=== PATIENT | female | born 1975 | race Caucasian/White ===

== ENCOUNTER 2023-01-01 10:29 | Emergency (ER) | payer SELFPAY ==
[~2023-01-01] VITALS: Ht 164 cm; Wt 55.0 kg
[2023-01-01] MEDS ORDERED: KETOROLAC INJ 30 MG/ML VIAL IVP ONE (11:30)
[2023-01-01] MEDS ORDERED: ONDANSETRON INJECTION 4 MG/2 ML (SDV) IVP ONE (11:30)
[2023-01-01] MEDS ORDERED: NS IV 1000 ML 1,000 ML IV STA (11:30)
--- NOTE | 2023-01-01 11:36 | ED Abdominal Pain ---
General Chief Complaint: Abdominal/GI Problems Stated Complaint: VOMITING | ABD PAIN Nursing Triage Note: PT STATES VOMITING THAT STARTED ABOUT 11 DAYS AGO, IT STOPPED FOR SEVERAL DAYS, PT STARTED FEELING NAUSEA AND VOMITING 3 DAYS AGO, TOOK ZOFRAN AND FELT BETTER FOR A BIT THEN STARTED VOMITING AGAIN, STILL NOT FEELING WELL, DIARRHEA AND CONSTIPATION OFF AND ON, NO OTHER MEDS TAKEN BESIDES ZOFRAN, LOW ABD PAIN Source of Information: Patient Exam Limitations: No Limitations (PAIGE CARRINGTON) History of Present Illness Date Seen by Provider: Jan 01, 2023 Time Seen by Provider: 11:32 Initial Comments Patient is a 47-year-old female with a history of endometriosis who presents to the ED for vomiting, nausea, bloating, diarrhea, abdominal cramping. She states about 11 days ago she had a day of where she had vomiting and diarrhea. She chalked this off to a 24-hour GI bug. She states her son had similar symptoms. She did get better but about a week later started having lower abdominal cramping with nausea. She described as morning sickness. She did experience some vomiting Saturday and Saturday. She did take Zofran. Lower abdominal cramping is located in her left right lower quadrant. Seems to be intermittent but radiating to the back. She has a history of endometriosis requiring 4 different surgeries[address] followed Dr[address] Lazaro gynecology over at [facility]. He is currently not seeing patients. She has continued feeling nauseous. She does report some intermittent diarrhea without any blood or mucousy stools. Cramping seems to be worse with the diarrhea. She has had a colonoscopy in the past. She also reports a 20 pound weight loss over the past month. She denies chest pain, shortness of breath, cough, sore throat, headache, dizziness, dysuria, hematuria, increased urine frequency, vaginal bleeding. (PAIGE CARRINGTON) Allergies and Home Medications Allergies Coded Allergies: Penicillins (Verified Allergy, Severe, 01/01/23) Patient Home Medication List Home Medication List Reviewed: Yes (PAIGE CARRINGTON) Review of Systems Review of Systems Constitutional: No chills, No diaphoresis, No fever; malaise, weakness EENTM: No Blurred Vision, No Double Vision, No Eye Pain Respiratory: Denies Cough, Denies Orthopnea Cardiovascular: Denies Chest Pain Gastrointestinal: Abdominal Pain, Diarrhea, Nausea, Vomiting Genitourinary: Denies Burning, Denies Discharge, Denies Drainage, Denies Frequency Musculoskeletal: No back pain, No joint pain, No joint swelling, No muscle pain Skin: No change in color, No change in hair/nails (PAIGE CARRINGTON) All Other Systems Reviewed Negative Unless Noted: Yes (PAIGE CARRINGTON) Past Bmhcrhq-[id number]-Sxceqc Hx Patient Social History Tobacco Use?: No Substance use?: No Alcohol Use?: No (PAIGE CARRINGTON) Immunizations Up To Date First/Initial COVID19 Vaccinat: YES (PAIGE CARRINGTON) Past Medical History Surgery/Hospitalization HX: ENDOMETROSIS WITH 4 SURGERIES (PAIGE CARRINGTON) Physical Exam Vital Signs Vital Signs - First Documented 01/01/23 10:42 Temp 36.7 Pulse 79 Resp 18 B/P (MAP) 115/79 (91) O2 Delivery Room Air (CHARLES MAXWELL MD) Vital Signs Capillary Refill : Less Than 3 Seconds (PAIGE CARRINGTON) Height/Weight/BMI Height: '" Weight: lbs. oz. kg; 20.00 BMI Method: General Appearance: WD/WN, no apparent distress HEENT: PERRL/EOMI, normal ENT inspection, TMs normal, pharynx normal Neck: non-tender, full range of motion, supple Respiratory: chest non-tender, lungs clear, normal breath sounds, no respiratory distress, no accessory muscle use Cardiovascular: regular rate, rhythm, no edema, no gallop, no JVD Gastrointestinal: normal bowel sounds, soft, no organomegaly, other (Right lower quadrant tenderness. Normal bowel sounds throughout. No rebound or gu arding.) Extremities: normal range of motion, non-tender, normal inspection, no pedal edema Back: normal inspection, no CVA tenderness Neurologic/Psychiatric: gold buyer II-XII nml as tested, no motor/sensory deficits, alert, normal mood/affect, oriented x 3 Skin: normal color, warm/dry (PAIGE CARRINGTON) Progress/Results/Core Measures Results/Orders Lab Results Laboratory Tests Test 01/01/23 11:31 01/01/23 11:45 Range/Units Urine Color YELLOW Urine Clarity CLEAR Urine pH 6.5 5-9 Urine Specific [place] <=1.005 1.016-1.022 Urine Protein NEGATIVE NEGATIVE Urine Glucose (UA) NEGATIVE NEGATIVE Urine Ketones NEGATIVE NEGATIVE Urine Nitrite NEGATIVE NEGATIVE Urine Bilirubin NEGATIVE NEGATIVE Urine Urobilinogen 0.2 < = 1.0 MG/DL Urine Leukocyte Esterase NEGATIVE NEGATIVE Urine RBC (Auto) NEGATIVE NEGATIVE Urine RBC NONE /HPF Urine WBC NONE /HPF Urine Squamous Epithelial Cells 10-25 H /HPF Urine Crystals NONE /LPF Urine Bacteria NEGATIVE /HPF Urine Casts NONE /LPF Urine Mucus NEGATIVE /LPF Urine Culture Indicated NO Urine Chlamydia trachomatis RNA Not Detected Not Detected Urine Neisseria gonorrhoeae RNA Not Detected Not Detected White Blood Count 5.3 4.3-11.0 10^3/uL Red Blood Count 4.46 3.80-5.11 10^6/uL Hemoglobin 13.0 11.5-16.0 g/dL Hematocrit 39 35-52 % Mean Corpuscular Volume 87 80-99 fL Mean Corpuscular Hemoglobin 29 25-34 pg Mean Corpuscular Hemoglobin Concent 33 32-36 g/dL Red Cell Distribution Width 12.5 10.0-14.5 % Platelet Count 191 130-400 10^3/uL Mean Platelet Volume 10.8 9.0-12.2 fL Immature Granulocyte % (Auto) 0 % Neutrophils (%) (Auto) 64 42-75 % Lymphocytes (%) (Auto) 29 12-44 % Monocytes (%) (Auto) 6 0-12 % Eosinophils (%) (Auto) 1 0-10 % Basophils (%) (Auto) 0 0-10 % Neutrophils # (Auto) 3.4 1.8-7.8 10^3/uL Lymphocytes # (Auto) 1.5 1.0-4.0 10^3/uL Monocytes # (Auto) 0.3 0.0-1.0 10^3/uL Eosinophils # (Auto) 0.1 0.0-0.3 10^3/uL Basophils # (Auto) 0.0 0.0-0.1 10^3/uL Immature Granulocyte # (Auto) 0.0 0.0-0.1 10^3/uL Sodium Level 138 135-145 MMOL/L Potassium Level 3.6 3.6-5.0 MMOL/L Chloride Level 105 98-107 MMOL/L Carbon Dioxide Level 25 21-32 MMOL/L Anion Gap 8 5-14 MMOL/L Blood Urea Nitrogen 6 L 7-18 MG/DL Creatinine 0.79 0.60-1.30 MG/DL Estimat Glomerular Filtration Rate 94 BUN/Creatinine Ratio 8 Glucose Level 99 70-105 MG/DL Calcium Level 9.2 8.5-10.1 MG/DL Corrected Calcium 9.0 8.5-10.1 MG/DL Magnesium Level 2.1 1.6-2.4 MG/DL Total Bilirubin 0.6 0.1-1.0 MG/DL Aspartate Amino Transf (AST/SGOT) 11 5-34 U/L Alanine Aminotransferase (ALT/SGPT) 15 0-55 U/L Alkaline Phosphatase 69 40-136 U/L C-Reactive Protein High Sensitivity 0.01 0.00-0.50 MG/DL Total Protein 7.0 6.4-8.2 GM/DL Albumin 4.2 3.2-4.5 GM/DL Lipase 40 8-78 U/L (CHARLES MAXWELL MD) My Orders Orders - CHARLES MAXWELL MD Iohexol Injection (Omnipaque 350 Mg/Ml 1 (01/01/23 12:15) Received Contrast (Hold Metformin- Contr (01/01/23 12:15) Ns (Ivpb) 100 Ml (Sodium Chloride 0.9% 1 (01/01/23 12:15) (CHARLES MAXWELL MD) Vital Signs/I&O 01/01/23 01/01/23 01/01/23 10:42 11:52 17:02 Temp 36.7 36.7 36.7 Pulse 79 79 Resp 18 18 B/P (MAP) 115/79 (91) 115/79 O2 Delivery Room Air Room Air (CHARLES MAXWELL MD) Blood Pressure Mean: 91 Departure Communication (PCP) Patient is a 47-year-old female presents ED with lower abdominal pain nausea vomiting diarrhea. History of endometriosis. She reports four surgeries requiring removal of the endometriosis. Last surgery 3 years ago at [facility]. 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 Is not able to get a follow-up until March. Differential diagnosis, gastroenteritis, colitis, diverticulitis, endometriosis, cystitis, PID. She is not concern for sexual transmitted infections. No vaginal discharge, vaginal bleeding or urinary symptoms. She states last Pap smear was 3 years ago and states everything looked okay. CBC, CMP, urinalysis was ordered. CBC, CMP grossly unremarkable. Urinalysis negative for infection. CT abdomen pelvis noted some stranding and free fluid surrounding the cervix. Indeterminate liver lesions favored to represent hemangioma. Outpatient follow-up of liver MRI. Pelvic ultrasound shows a 2.1 cm left ovarian cyst. study otherwise unremarkable. Patient was discussed with Dr. Berumen VOIP TECHNICIAN on-call. She suggest adding a chlamydia and gonorrhea to her urine. Suggest getting a pelvic exam but patient was not adamant of doing this at this time. Suggest treating her with Rocephin and azithromycin and to follow-up with her her in the clinic within the next week. She has Zofran at home. Patient will need further evaluation. Continue with anti-inflammatories at home. She does have Zofran. Pain could be related to her endometriosis versus PID versus GI. Suggest further evaluation with gynecology. Patient agrees with plan of action. (PAIGE CARRINGTON) Impression Primary Impression: Abdominal pain Disposition: HOME, SELF-CARE Condition: Stable Departure-Patient Inst. Decision time for Depature: 16:18 (PAIGE CARRINGTON) Referrals: NO,LOCAL PHYSICIAN (PCP) Primary Care Physician TOMAS BERUMEN DO Patient Instructions: Abdominal Pain, Adult ED Add. Discharge Instructions: Recommend taking anti-inflammatories. Recommend contacting Dr. Berumen's office for a follow-up in the next week. All discharge instructions reviewed with patient and/or family. Voiced understanding. ATTENDING PHYSICIAN NOTE: I was physically present as attending physician in the emergency department during the care of this patient. I reviewed the case with SHANIA Hidalgo. Labs and imaging results were reviewed. I discussed these findings and the clinical history with Bryanna. It is possible some of the symptoms are due to recurrence of endometriosis. Inflammation was noted about the cervix on CT imaging. Shop Assistant consult and pelvic exam were recommended. Arrangements were made. (CHARLES MAXWELL MD) Copy Copies To 1: TOMAS BERUMEN ZACHARY A PA Jan 01, 2023 11:36 CHARLES MAXWELL MD Jan 02, 2023 17:00
[2023-01-01 11:52] LABS: BASOPHILS % (AUTO) 0 % (0-10); EOSINOPHILS # (AUTO) 0.1 10^3/uL (0.0-0.3); EOSINOPHILS % (AUTO) 1 % (0-10); HEMATOCRIT 39 % (35-52); LYMPHOCYTES # (AUTO) 1.5 10^3/uL (1.0-4.0); LYMPHOCYTES % (AUTO) 29 % (12-44); MEAN CORPUSCULAR HEMOGLOBIN 29 pg (25-34); MEAN CORPUSCULAR HGB CONC 33 g/dL (32-36); MEAN CORPUSCULAR VOLUME 87 fL (80-99); MEAN PLATELET VOLUME 10.8 fL (9.0-12.2); MONOCYTES # (AUTO) 0.3 10^3/uL (0.0-1.0); MONOCYTES % (AUTO) 6 % (0-12); NEUTROPHILS # (AUTO) 3.4 10^3/uL (1.8-7.8); NEUTROPHILS % (AUTO) 64 % (42-75); PLATELET COUNT 191 10^3/uL (130-400); WHITE BLOOD COUNT 5.3 10^3/uL (4.3-11.0)
[2023-01-01 11:53] LABS: CLARITY,URINE CLEAR; COLOR,URINE YELLOW; PH,URINE 6.5 (5-9)
[2023-01-01 11:54] LABS: BACTERIA,URINE NEGATIVE /HPF; BILIRUBIN,URINE NEGATIVE (NEGATIVE); GLUCOSE, URINE (UA) NEGATIVE (NEGATIVE); KETONES,URINE NEGATIVE (NEGATIVE); LEUKOCYTE ESTERASE ,URINE NEGATIVE (NEGATIVE); NITRITE,URINE NEGATIVE (NEGATIVE); PROTEIN,URINE NEGATIVE (NEGATIVE)
[2023-01-01 12:06] LABS: ALBUMIN 4.2 GM/DL (3.2-4.5); POTASSIUM 3.6 MMOL/L (3.6-5.0)
[2023-01-01 12:07] LABS: CALCIUM 9.2 MG/DL (8.5-10.1)
[2023-01-01 12:10] LABS: BILIRUBIN,TOTAL 0.6 MG/DL (0.1-1.0)
[2023-01-01 12:12] LABS: CREATININE SERUM 0.79 MG/DL (0.60-1.30)
[2023-01-01 12:15] LABS: MAGNESIUM 2.1 MG/DL (1.6-2.4)
[2023-01-01] MEDS ORDERED: IOHEXOL 350 MG/ML 100 ML (OMNIPAQUE 350) VIAL IV ONE (12:15)
[2023-01-01] MEDS ORDERED: NS 100 ML (IVPB) BAG IV ONE (12:15)
[2023-01-01] MEDS ORDERED: HOLD METFORMIN - RECEIVED CONTRAST 20 ML VIAL IV SCH (12:15)
--- NOTE | 2023-01-01 12:26 | Diagnostic Imaging Report ---
EXAMINATION: CT abdomen and pelvis with intravenous contrast. TECHNIQUE: Multiple contiguous axial images were obtained through the abdomen and pelvis after the uneventful administration of intravenous contrast. All CT scans use one or more of the following dose optimizing techniques: automated exposure control, MA and/or KvP adjustment based on patient size and exam type or iterative reconstruction. HISTORY: Abdominal pain COMPARISON: None available. FINDINGS: Limited views of the lower thorax are unremarkable. There is a hemangioma in segment VIII of the liver. There is an indeterminate 2.7 cm lesion in segment II of the liver with indeterminate lesion is present in segment measuring 1.6 cm.. There is no biliary ductal dilation. Gallbladder is normal. Pancreas is normal. Spleen is normal. Adrenal glands are normal. The kidneys are normal. There is no hydronephrosis. Urinary bladder is normal. There are physiologic cysts in both ovaries. Bowel is normal in caliber without obstruction or inflammation. There is a small amount of free fluid in the pelvis. No free air. There is stranding around the cervix. No abdominal or pelvic lymphadenopathy. Aorta is normal in caliber without aneurysm. There are no suspicious osseus lesions. IMPRESSION: 1. Stranding and free fluid surrounding the cervix, pelvic sonogram recommended. 2. Indeterminate liver lesions favored to represent hemangiomas. Outpatient followup liver MRI recommended. Dictated by: Dictated on workstation # [id number]
--- NOTE | 2023-01-01 14:25 | Diagnostic Imaging Report ---
PROCEDURE: US non-OB transvaginal. TECHNIQUE: Multiple real-time grayscale images were obtained of the pelvis in various projections endovaginally. INDICATION: Nausea, vomiting, and bloating. FINDINGS: Uterus is anteverted measuring 9.6 x 5.1 x 4.7 cm. Endometrium is approximately 8 mm in thickness. No myometrial mass is identified. Right ovary measures 3.3 x 2.5 x 1.8 cm, and left ovary measures 3.9 x 2.1 x 1.7 cm. There is a 2.1 cm cyst involving the left ovary. There is blood flow to both ovaries. No adnexal mass or free fluid is detected. IMPRESSION: 2.1 cm left ovarian cyst. The study is otherwise unremarkable. Dictated by: Dictated on workstation # [id number]
[2023-01-01] MEDS ORDERED: cefTRIAXone IV/IM 1,000 MG in NS (IVPB) 50 ML 50 ML IV STA (16:14)
[2023-01-01] MEDS ORDERED: AZITHROMYCIN 250 MG TABLET PO ONE (16:15)
[2023-01-01] MEDS ORDERED: LIDOCAINE 1% INJ 20 ML VIAL INJ ONE (16:30)
[2023-01-01] MEDS ORDERED: WATER IV NR (16:30)
[2023-01-01] MEDS ORDERED: cefTRIAXone 500 MG VIAL IV/IM IM ONE (16:30)
[2023-01-01] MEDS ORDERED: CEFTRIAXONE IV NR (16:30)
[2023-01-01 17:02] VITALS: BP 115/79
== END 2023-01-01 17:02 | disposition home or self-care (01) ==
LOC: ER 10:32
DX: R10.31 Right lower quadrant pain (principal); R11.2 Nausea with vomiting, unspecified
CPT/HCPCS: 36415; 74177; 76830; 80053; 81000; 83690; 83735; 85025; 86141; 87491; 87591; 96361; 96374; 96375